=== PATIENT | female | born 1995 | race Caucasian/White ===

== ENCOUNTER 2021-03-13 07:49 | Emergency (ER) | payer BC, OTHER ==
[~2021-03-13] VITALS: Ht 167.7 cm; Wt 115.6 kg
--- NOTE | 2021-03-13 08:34 | ED General ---
General Chief Complaint: Back Problems Stated Complaint: BACK,R LEG AND BI LAT ARM PAIN Source of Information: Patient Exam Limitations: No Limitations (LOY YOUSIF STUDENT) History of Present Illness Date Seen by Provider: Mar 13, 2021 Time Seen by Provider: 08:25 Initial Comments Rogerio Boss is a 26 year old F presenting to the ED for CC of low back pain. Pain started yesterday and has been increasing in severity. Pain is described as a dull cramp between episodes of shooting pain located on right lumbar/ paraspinal/ gluteal region. Pain radiates from right lumbar to right gluteal and wraps around to anteriolateral thigh. Pt notes pain to be a 6-7/10 currently. Pt took naproxen (220 mg x2) and Flexaril (5mg) at 0730 today with minimal improvement. Pt notes recent extended car ride for family emergency approximatel y 2 weeks ago, which pt attributes to the initiation of current back pain. Pt has a PMH of lumbar fracture and herniated disc of either the L4/5 or L5/S1 diagnosed via [facility] December 2019. Last seen in their clinic in March 2020 for epidural steroid injection which provided significant relief of symptoms. Pt endorses FH of herniated discs on paternal side, diagnosed around the same age as the pt. Pt denies any other symptom at this time including decreased/ loss of sensation, bladder/ bowel incontinence, or lower extremity weakness. Timing/Duration: 1 Day Severity: Mild Modifying Factors: worse with Immobilization; improves with Medication; worse with Movement Associated Systoms: Denies Symptoms (LOY YOUSIF STUDENT) Allergies and Home Medications Allergies Coded Allergies: No Known Drug Allergies (Unverified , 03/13/21) Patient Home Medication List Home Medication List Reviewed: Yes (LOY YOUSIF MED STUDENT) Prednisone (Prednisone) 20 Mg Tab, 40 MG PO DAILY Prescribed by: MILTON WRIGHT on 03/13/21 1041 Review of Systems Review of Systems Constitutional: no symptoms reported EENTM: no symptoms reported Respiratory: no symptoms reported Cardiovascular: no symptoms reported Gastrointestinal: no symptoms reported Genitourinary: no symptoms reported Musculoskeletal: back pain (R lumbar), muscle pain (R lumbar), muscle cramps (R lumbar) Skin: no symptoms reported Psychiatric/Neurological: No Symptoms Reported Hematologic/Lymphatic: No Symptoms Reported Immunological/Allergic: no symptoms reported (LOY YOUSIF STUDENT) All Other Systems Reviewed Negative Unless Noted: Yes (LOY YOUSIF) Past Qoowdzk-Geopur-Fxgher Hx Past Medical History Surgeries: Yes ([place] teeth removal 2016) Respiratory: No Neurological: No Reproductive Disorders: No Genitourinary: No Gastrointestinal: No Musculoskeletal: Yes Chronic Back Pain (Herniated disc (L4/5 or L5/S1)), Fractures (Lumbar) Endocrine: No HEENT: No Loss of Vision: Denies Hearing Impairment: Denies Cancer: No Did You Recieve Any Treatments: No Psychosocial: No (LOY YOUSIF) Physical Exam Vital Signs (MILTON DUMONT MD) Vital Signs Capillary Refill : (LOY YOUSIF STUDENT) Height, Weight, BMI Height: '" Weight: lbs. oz. kg; BMI Method: General Appearance: No Apparent Distress, WD/WN Respiratory: Chest Non Tender, Lungs Clear, Normal Breath Sounds, No Accessory Muscle Use, No Respiratory Distress Cardiovascular: Regular Rate, Rhythm, No Edema, No Gallop, No Murmur Back: Normal Inspection, No Vertebral Tenderness, Muscle Spasm (R paraspinal) Extremity: Non Tender, No Calf Tenderness Neurologic/Psychiatric: Alert, Oriented x3, No Motor/Sensory Deficits (Strength +5/5), Normal Mood/Affect Skin: Normal Color, Warm/Dry (LOY YOUSIF STUDENT) Progress/Results/Core Measures Suspected Sepsis SIRS Temperature: Pulse: Respiratory Rate: Blood Pressure / Mean: (LOY YOUSIF) Results/Orders My Orders Orders - MILTON DUMONT MD Lumbar Spine - 2-3 Views (03/13/21 09:15) Cyclobenzaprine Tablet (Flexeril Tablet) (03/13/21 09:30) Hydrocodone/Apap 5/325 Tablet (Lortab 5 (03/13/21 09:30) Urine Bedside (03/13/21 09:19) (MILTON DUMONT MD) Medications Given in ED (MILTON DUMONT MD) Vital Signs/I&O (MILTON DUMONT MD) Vital Signs/I&O Capillary Refill : (YOUSIF,LOY MED STUDENT) Diagnostic Imaging Diagonstic Imaging: Xray Plain Films/CT/US/NM/MRI: other (Lumbar spine) Comments X-rays of the lumbar spine viewed by me and report reviewed. See report below: NAME: ROGERIO BOSS [facility] REC#: [id number] PT STATUS: REG ER : 1995 PHYSICIAN: MILTON DUMONT MD ADMIT DATE: 03/13/21/ER Draft Date of Exam:03/13/21 LUMBAR SPINE - 2-3 VIEWS EXAMINATION: Lumbar spine at 9:57 AM INDICATION: Back pain AP, lateral and spot lateral views were obtained. There are no prior studies available for comparison. The AP view suggests that L5 is a transitional vertebra. There is also spina bifida occulta at L5. This is a developmental variant. On the lateral view, there does seem to be slight anterior translation of L5 with respect to S1. There is also mild narrowing of the disc space at this level. The other intervertebral disc spaces are fairly well-maintained. There is no fracture or acute bony abnormality noted. There is no sign of a paraspinal mass. The sacroiliac joints are symmetrical and within normal limits. IMPRESSION: 1. L5 appears to be a transitional vertebra and there is slight anterior translation of L5 with respect to S1. There is also mild narrowing of the disc space at this level. If there is clinical concern regarding spinal stenosis or nerve root encroachment at this level, then MRI would be recommended for further study. 2. There is no acute bony abnormality noted. Dictated on workstation # [id number] Dict: 03/13/21 0951 Trans: 03/13/21 0958 [facility] [id number] Interpreted by: LUKAS HENAO MD (IMLTON DUMONT MD) Departure Impression Primary Impression: Lumbar radiculopathy Additional Impressions: Low back pain Qualified Codes: M54.41 - Lumbago with sciatica, right side; G89.29 - Other chronic pain Transitional vertebra Disposition: HOME, SELF-CARE Condition: Improved Departure-Patient Inst. Referrals: ROSEY MONTGOMERY DO (PCP/Family) Primary Care Physician Patient Instructions: Low Back Pain in Adults, Radiculopathy Add. Discharge Instructions: For primary pain control use ibuprofen up to 600 mg every 6 hours as needed or Aleve (naproxen) up to 500 mg twice daily. For pain not controlled by [id number]-vub-[id number] medications, you may add hydrocodone as prescribed. Please be aware hydrocodone may cause constipation and may make you drowsy. Use with caution. You may increase your cyclobenzaprine muscle relaxer to 10 mg every 8 hours if needed. A short course of prednisone is also being prescribed. This is a steroid and may cause stomach upset or sleep disturbance. Please take early in the day to avoid sleep disturbance and with food or milk to avoid stomach upset. Avoid heavy lifting, excessive bending, or strenuous activity until your pain is completely resolved. Please follow-up with your primary care provider to discuss other means of managing this chronic recurrent pain. If the above therapies do not resolve your pain with an a few days, please contact your spine surgeon for further evaluation. Return to the ER if you have worsening symptoms despite following these instructions, especially if you develop weakness of the legs, numbness of the groin, or problems controlling your bowels or bladder. Call with questions or concerns. All discharge instructions reviewed with patient and/or family. Voiced understanding. Scripts Prednisone (Prednisone) 20 Mg Tab 40 MG PO DAILY, #6 TAB 0 Refills Prov: MILTON DUMONT MD 03/13/21 Work/School Note: Work Release Form Date Seen in the Emergency Department: Mar 13, 2021 Return to Work: Mar 13, 2021 Restrictions: No Restrictions Other Restrictions Listed Below: Return to work afternoon of 03/13/21 Medical Student Attestation and Attending Note: I have personally interviewed and examined this patient along with Loy Yousif, MS 4. I have reviewed student documentation including history, physical, and assessments. I agree with the documentation except where otherwise noted. Exam: General: Alert, oriented, no acute distress, well developed, obese HEENT: Normocephalic and atraumatic Heart: Regular rate and rhythm without murmur Lungs: Clear to auscultation bilaterally with normal effort Back: Tenderness over the lower lumbar spine and right lower lumbar paraspinous region. Normal to inspection. Neuropsych: Alert, oriented, no focal deficits Skin: Warm and dry without rashes The abnormality the patient refers to in her lower lumbar spine is likely the transitional vertebra. She does not appear to have a fracture but does appear to have incomplete fusion of the spinous process at the transitional vertebra seen on x-ray. I presume this is the area she was referring to when she talked about "fracture". Because of the radicular symptoms, she is being prescribed prednisone. Hydrocodone was prescribed for breakthrough pain. See discharge instructions for more details. (MILTON DUMONT MD) LOY YOUSIF MED STUDENT Mar 13, 2021 08:34 MILTON DUMONT MD Mar 13, 2021 10:34
[2021-03-13] MEDS ORDERED: CYCLOBENZAPRINE 10 MG (FLEXERIL) TAB PO ONE (09:30)
[2021-03-13] MEDS ORDERED: HYDROcodone/APAP 5 MG/325 MG (LORTAB) TAB PO ONE (09:30)
--- NOTE | 2021-03-13 09:59 | Diagnostic Imaging Report ---
EXAMINATION: Lumbar spine at 9:57 AM INDICATION: Back pain AP, lateral and spot lateral views were obtained. There are no prior studies available for comparison. The AP view suggests that L5 is a transitional vertebra. There is also spina bifida occulta at L5. This is a developmental variant. On the lateral view, there does seem to be slight anterior translation of L5 with respect to S1. There is also mild narrowing of the disc space at this level. The other intervertebral disc spaces are fairly well-maintained. There is no fracture or acute bony abnormality noted. There is no sign of a paraspinal mass. The sacroiliac joints are symmetrical and within normal limits. IMPRESSION: 1. L5 appears to be a transitional vertebra and there is slight anterior translation of L5 with respect to S1. There is also mild narrowing of the disc space at this level. If there is clinical concern regarding spinal stenosis or nerve root encroachment at this level, then MRI would be recommended for further study. 2. There is no acute bony abnormality noted. Dictated by: Dictated on workstation # [id number]
[2021-03-13] MEDS ORDERED: PRD20T PO (10:41)
[2021-03-13 10:48] VITALS: BP 115/76
== END 2021-03-13 10:48 | disposition home or self-care (01) ==
LOC: ER 07:52
DX: M54.16 Radiculopathy, lumbar region (principal); Q76.49 Other congenital malformations of spine, not associated with scoliosis
CPT/HCPCS: 72100; 84703

== ENCOUNTER 2022-02-20 14:55 | Outpatient (RCR) | payer BC ==
[~2022-02-20 14:55] MED LIST: PRD20T PO
== END 2022-02-23 | disposition home or self-care (01) ==
PROVIDERS: ATTEND Student in an Organized Health Care Education/Training Program
DX: M43.10 Spondylolisthesis, site unspecified (principal)

== ENCOUNTER 2022-03-22 13:03 | Outpatient (RCR) | payer BC | END 2022-03-22 13:35 | disposition home or self-care (01) | PROVIDERS: ATTEND Student in an Organized Health Care Education/Training Program | DX: M43.16 Spondylolisthesis, lumbar region (principal); J45.909 Unspecified asthma, uncomplicated ==